=== PATIENT | female | born 1965 | race Asian ===

== ENCOUNTER → 2017-02-27 | Outpatient (CLI) | payer BC | LOC: BHSO 08:44 | DX: F41.1 Generalized anxiety disorder (principal) ==

== ENCOUNTER → 2017-05-22 | Outpatient (CLI) | payer BC | LOC: MHCPAIN 08:54 | DX: G89.29 Other chronic pain (principal); M54.12 Radiculopathy, cervical region; M47.812 Spondylosis without myelopathy or radiculopathy, cervical region; R51 Headache | CPT/HCPCS: G0463 ==

== ENCOUNTER → 2017-05-25 | Outpatient (CLI) | payer BC | LOC: MHCPAIN 11:36 | DX: M50.323 Other cervical disc degeneration at C6-C7 level (principal) | CPT/HCPCS: J1100; Q9967 ==

== ENCOUNTER → 2017-06-13 | Outpatient (CLI) | payer BC | LOC: MHCPAIN 09:44 | DX: G89.29 Other chronic pain (principal); M50.90 Cervical disc disorder, unspecified, unspecified cervical region; M54.12 Radiculopathy, cervical region | CPT/HCPCS: G0463 ==

== ENCOUNTER 2017-07-11 14:30 | Outpatient (RCR) | payer BC | END 2017-08-23 09:53 | LOC: WSPT 14:30 | DX: M54.12 Radiculopathy, cervical region (principal) | CPT/HCPCS: G0283-GP ==

== ENCOUNTER → 2017-07-13 | Outpatient (CLI) | payer BC | LOC: MHCPAIN 11:07 | DX: M50.123 Cervical disc disorder at C6-C7 level with radiculopathy (principal) | CPT/HCPCS: J1100; Q9967 ==

== ENCOUNTER → 2017-07-20 | Outpatient (CLI) | payer BC | LOC: COL.RAD 07-19 10:30 | DX: N94.9 Unspecified condition associated with female genital organs and menstrual cycle (principal); R35.0 Frequency of micturition ==

== ENCOUNTER → 2017-08-01 | Outpatient (CLI) | payer BC | LOC: MC.RAD 08:00 | DX: Z12.31 Encounter for screening mammogram for malignant neoplasm of breast (principal) ==

== ENCOUNTER → 2017-08-08 | Outpatient (CLI) | payer BC | LOC: MC.RAD 13:57 | DX: N64.89 Other specified disorders of breast (principal); N63.32 Unspecified lump in axillary tail of the left breast ==

== ENCOUNTER → 2017-08-15 | Outpatient (CLI) | payer BC | LOC: MC.RAD 08:56 | DX: N63.0 Unspecified lump in unspecified breast (principal) ==

== ENCOUNTER → 2017-12-11 | Outpatient (CLI) | payer BC | LOC: BHSO 09:39 | DX: F41.1 Generalized anxiety disorder (principal) | CPT/HCPCS: G0463 ==

== ENCOUNTER 2018-03-16 11:05 | Day surgery (SDC) | payer BC ==
[~2018-03-16] VITALS: Ht 157.5 cm; Wt 62.0 kg
[2018-03-16] MEDS ORDERED: PROZAC 10MG10 MG PO (11:28)
[2018-03-16 11:45] VITALS: BP 142/89; PULSE 80; TEMP 97.9
[2018-03-16 13:05] VITALS: BP 119/81; PULSE 71; TEMP 97.7
[2018-03-16 13:15] VITALS: BP 118/81; PULSE 65
[2018-03-16 13:30] VITALS: BP 122/78; PULSE 66
[2018-03-16 14:23] VITALS: BP 119/68; PULSE 70
== END 2018-03-16 13:45 | disposition home or self-care (01) ==
LOC: SDCO 11:05
DX: Z12.11 Encounter for screening for malignant neoplasm of colon (principal); K63.5 Polyp of colon
CPT/HCPCS: J2250; J3010; J7030

== ENCOUNTER → 2018-07-06 | Outpatient (CLI) | payer BC ==
[~2018-07-06] MED LIST: PROZAC 10MG10 MG PO
== END ==
LOC: COL.RAD 09:29
DX: M48.02 Spinal stenosis, cervical region (principal); M47.22 Other spondylosis with radiculopathy, cervical region; M99.71 Connective tissue and disc stenosis of intervertebral foramina of cervical region

== ENCOUNTER → 2018-11-23 | Outpatient (CLI) | payer BC | LOC: BHSO 12:49 | DX: F41.0 Panic disorder [episodic paroxysmal anxiety] (principal) ==

== ENCOUNTER → 2018-11-27 | Outpatient (CLI) | payer BC | LOC: COL.RAD 13:29 | DX: N95.0 Postmenopausal bleeding (principal); R93.89 Abnormal findings on diagnostic imaging of other specified body structures ==

== ENCOUNTER → 2018-12-03 | Outpatient (CLI) | payer BC | LOC: BHSO 13:53 | DX: F41.0 Panic disorder [episodic paroxysmal anxiety] (principal) ==

== ENCOUNTER → 2018-12-10 | Outpatient (CLI) | payer BC | LOC: BHSO 14:49 | DX: F41.0 Panic disorder [episodic paroxysmal anxiety] (principal) ==

== ENCOUNTER → 2018-12-17 | Outpatient (CLI) | payer BC, OTHER | LOC: BHSO 14:56 | DX: F41.0 Panic disorder [episodic paroxysmal anxiety] (principal) ==

== ENCOUNTER → 2018-12-24 | Outpatient (CLI) | payer BC, OTHER | LOC: BHSO 14:57 | DX: F41.0 Panic disorder [episodic paroxysmal anxiety] (principal) ==

== ENCOUNTER → 2019-01-07 | Outpatient (CLI) | payer BC | LOC: BHSO 15:46 | DX: F41.0 Panic disorder [episodic paroxysmal anxiety] (principal) ==

== ENCOUNTER → 2019-01-16 | Outpatient (CLI) | payer BC, OTHER | LOC: MC.RAD 08:45 | DX: Z12.31 Encounter for screening mammogram for malignant neoplasm of breast (principal) ==

== ENCOUNTER → 2019-01-21 | Outpatient (CLI) | payer BC, OTHER | LOC: BHSO 15:58 | DX: F41.0 Panic disorder [episodic paroxysmal anxiety] (principal) ==

== ENCOUNTER → 2019-02-04 | Outpatient (CLI) | payer BC, OTHER | LOC: BHSO 15:01 | DX: F41.0 Panic disorder [episodic paroxysmal anxiety] (principal) ==

== ENCOUNTER → 2019-02-12 | Outpatient (CLI) | payer BC, OTHER | LOC: BHSO 14:59 | DX: F41.0 Panic disorder [episodic paroxysmal anxiety] (principal) ==

== ENCOUNTER → 2019-02-25 | Outpatient (CLI) | payer BC ==
[2019-02-25 10:08] LABS: HEMATOCRIT 39.3 % (37.0-47.0); MEAN CELL VOLUME 86 fl (80.0-100.0); MEAN CORPUSCULAR HEMOGLOBIN 28 pg (27.0-31.0); MEAN CORPUSCULAR HGB CONC 33 g/dl (33.0-37.0); MEAN PLATELET VOLUME 10.2 fl (7.4-10.4); PLATELET COUNT 265 K/mm3 (130-400); RED BLOOD COUNT 4.59 M/mm3 (4.10-5.30)
[2019-02-25 10:19] LABS: ANION GAP 8 mmol/L (7-16); BLOOD UREA NITROGEN 18 mg/dL (7-17); CALCIUM 9.3 mg/dL (8.4-10.2); CARBON DIOXIDE 27 mmol/L (22-30); CHLORIDE 104 mmol/L (98-107); CREATININE, serum 0.64 (0.52-1.25); GLUCOSE 99 mg/dL (74-106); POTASSIUM 4.2 mmol/L (3.4-5.0); SODIUM 139 mmol/L (137-145)
[2019-02-25 10:31] LABS: TROPONIN-I < 0.012 ng/mL (0.000-0.035)
[2019-02-25 10:49] LABS: THYROID STIMULATING HORMONE 0.869 uIU/mL (0.465-4.680)
== END ==
LOC: COL.RAD 09:32
PROVIDERS: Internal Medicine Interventional Cardiology
DX: R07.89 Other chest pain (principal)

== ENCOUNTER → 2019-02-27 | Outpatient (CLI) | payer BC | LOC: BHSO 14:44 | DX: F41.0 Panic disorder [episodic paroxysmal anxiety] (principal) ==

== ENCOUNTER → 2019-03-14 | Outpatient (CLI) | payer BC | LOC: BHSO 12:57 | DX: F41.0 Panic disorder [episodic paroxysmal anxiety] (principal) ==

== ENCOUNTER → 2019-03-27 | Outpatient (CLI) | payer BC | LOC: BHSO 12:58 | DX: F41.0 Panic disorder [episodic paroxysmal anxiety] (principal) ==

== ENCOUNTER → 2019-04-15 | Outpatient (CLI) | payer BC | LOC: BHSO 12:57 | DX: F41.0 Panic disorder [episodic paroxysmal anxiety] (principal) ==

== ENCOUNTER → 2019-05-13 | Outpatient (CLI) | payer BC | LOC: BHSO 13:53 | DX: F41.0 Panic disorder [episodic paroxysmal anxiety] (principal) ==

== ENCOUNTER → 2019-06-05 | Outpatient (CLI) | payer BC | LOC: BHSO 13:48 | DX: F41.0 Panic disorder [episodic paroxysmal anxiety] (principal) ==

== ENCOUNTER → 2020-01-20 | Outpatient (CLI) | payer BC | LOC: MC.RAD 13:00 | DX: Z12.31 Encounter for screening mammogram for malignant neoplasm of breast (principal) ==

== ENCOUNTER → 2020-02-25 | Outpatient (CLI) | payer BC | LOC: ZCOL.LAB 15:14 | DX: Z20.828 Contact with and (suspected) exposure to other viral communicable diseases (principal) ==

== ENCOUNTER → 2021-02-03 | Outpatient (CLI) | payer BC | LOC: MC.RAD 09:15 | DX: Z12.31 Encounter for screening mammogram for malignant neoplasm of breast (principal) ==

== ENCOUNTER → 2022-03-28 | Outpatient (CLI) | payer BC | LOC: MC.RAD 13:30 | DX: Z12.31 Encounter for screening mammogram for malignant neoplasm of breast (principal) ==

== ENCOUNTER → 2024-08-28 | Outpatient (CLI) | payer BC | LOC: MC.RAD 10:01 | DX: Z12.31 Encounter for screening mammogram for malignant neoplasm of breast (principal) ==